=== PATIENT | male | born 1945 | race Caucasian/White ===

== ENCOUNTER 2020-04-26 03:29 | Emergency (ER) | payer MEDICARE, SELFPAY ==
[2020-04-26] VITALS (7 sets, daily range): BP systolic 143–156; BP diastolic 66–78; PULSE 79–86; RESP 20–30; TEMP 36.9; O2SAT 94–97; BMI 38.7
--- NOTE | 2020-04-26 03:32 | CT_ITS ---
EXAMINATION: CT HEAD WITHOUT CONTRAST CLINICAL INFORMATION: Right sided deficit. COMPARISON: None. TECHNIQUE: Contiguous helical images of the brain were obtained without IV contrast. Multiplanar reconstructions were performed. DLP: 781 mGy-cm. FINDINGS: There are no pathologic extra-axial fluid collections. The lateral, third, fourth ventricles are nondilated and concordant with the appearance of the sulci. There is no evidence for acute intraparenchymal hemorrhage or infarct. There is neither mass nor mass effect. There is no shift of midline structures. The paranasal sinuses and mastoid air cells are clear. There are no osseous lesions. CT/CT head for stroke IMPRESSION: No evidence for acute intracranial injury. Automated exposure control (Care Dose) Adjustment of the mA and/or kv according to patient size (this includes techniques or standardized protocols for targeted exams where dose is matched to indication / reason for exam; i.e. extremities or head). This critical result was discussed with Dr. Dye at 0342 hours on 04/26/2020. It was ascertained that the content and urgency of the report was understood at the time of direct communication.
--- NOTE | 2020-04-26 03:32 | PC.NURSE ---
EKG OBTAINED BY JOSE TOLENTINO AT BEDSIDE. ?STEMI, AWARE, SIGNED EKG. 2 IVs ESTABLISHED AT THIS TIME, PLAN TO MEDICATE WITH ASPIRIN. AWAITING LAB RESULTS. WILL CONTINUE TO MONITOR. PULSE 80s AT THIS TIME.
--- NOTE | 2020-04-26 03:32 | XR_ITS ---
EXAMINATION: CHEST 1 VIEW CLINICAL INFORMATION: Right-sided deficit. Concern for stroke. COMPARISON: None. TECHNIQUE: An AP view of the chest is provided. FINDINGS: The cardiac silhouette is not enlarged. The mediastinal and hilar contours are unremarkable. There are neither pleural effusions nor pneumothoraces. There is mild retrocardiac airspace disease. The osseous structures are unremarkable. XR/XR chest 1V IMPRESSION: Mild retrocardiac airspace disease.
--- NOTE | 2020-04-26 03:32 | ECG_ITS ---
Test Reason : SYNCOPAL EPISODE Blood Pressure : / mmHG Vent. Rate : 083 BPM Atrial Rate : 083 BPM P-R Int : 218 ms QRS Dur : 106 ms QT Int : 382 ms P-R-T Axes : 059 003 158 degrees QTc Int : 448 ms Sinus rhythm with 1st degree A-V block with Premature supraventricular complexes Left ventricular hypertrophy with repolarization abnormality Inferior infarct , possibly acute ACUTE ME / STEMI Consider right ventricular involvement in acute inferior infarct ST depression in Anterolateral leads Abnormal ECG No previous ECGs available Referred By: Gisella Dye Electronically Signed By:MIGEL SINGH MD
--- NOTE | 2020-04-26 03:34 | CT_ITS ---
EXAMINATION: CTA OF THE HEAD AND NECK CLINICAL INFORMATION: Right-sided deficits. Rule out stroke. COMPARISON: Head CT from 3:32 AM on 04/26/2020. TECHNIQUE: Test bolus sequences followed by intravenous administration 70 mL of Omnipaque 350. Helical imaging was performed in the axial plane from the mediastinum to the skull vertex. Delayed postcontrast imaging of the head was also performed. The data was processed at the sonography technologist's workstation for generation of MIP sequences. Three-dimensional volume rendered reformatted images were also generated at an offline 3-D workstation. Stenoses are assessed in accordance with NASCET criteria unless otherwise indicated. This CT examination was performed using dose optimization techniques as appropriate, variously including the following: *Automated exposure control *Adjustment of mA and/or kV according to patient size (this includes techniques or standardized protocols for targeted exams where dose is matched to indication/reason for exam; i.e. extremities or head) *Use of iterative reconstruction technique DLP: 1608 mGy-cm. FINDINGS: CTA neck: The imaged aortic arch and origins of the great vessels are normal. The vertebral arteries opacify normally and are of normal caliber. The right common carotid artery is normal in caliber to the level of the bifurcation. There are significant atherosclerotic wall calcifications and mural thrombus at the right carotid bifurcation with a severe stenosis extending from the distal common carotid artery into the origins of the right ECA and ICA. The remainder of the cervical right internal carotid artery is normal in caliber. The left common carotid artery is of normal caliber. There is a 50% stenosis at the origin of the left internal carotid artery due to atherosclerotic disease. The remainder of the cervical left ICA is normal. The thyroid gland is not well seen and is either atrophic or has been previously ablated: Clinically correlate. Multiple small calcifications are visible in the parotid glands, presumably postinflammatory in etiology. The imaged portions of the lungs are clear. CTA head: The intradural vertebral arteries and basilar artery are normal. There is a severe stenosis at the junction of the P1/P2 segments of the left DIRECTOR LIFE. The internal carotid arteries are of normal caliber. The GIANCARLO and MCA vascular complexes bilaterally are normal. The venous sinuses opacify normally. CT/CT angio head neck stroke IMPRESSION: Significant atherosclerotic disease at the right carotid bifurcation with a severe stenosis involving the distal common carotid artery and origins of the right ECA and right ICA. Approximate 50% stenosis at the origin of the left internal carotid artery. Severe focal stenosis in the left DIRECTOR LIFE intracranially.
--- NOTE | 2020-04-26 03:39 | ED.NEUROSD ---
HPI - Neuro Symptoms/Deficit General Chief Complaint: Stroke Stated Complaint: ?STROKE Time Seen by Provider: 04/26/20 03:31 Source: family ( ) and EMS Mode of arrival: EMS Limitations: no limitations History of Present Illness HPI Narrative: History is provided by /EMS: This is a 74-year-old male brought in by EMS @ 0330 for concerns of stroke. Apparently went to bed at approximately 11:00 p.m. and states that her was watching TV at the time that she went to bed and then approximately 3:00 a.m. she heard a thump in the bathroom and went to investigate and found her wedged in between the toilet and her vanity and he appeared to be diaphoretic. On asking him if he hurt himself he was able to respond appropriately and stated that he was uninsured. However, it was noted that he was unable to get up on his own at that time and the noted that it appeared he was listing to the right side but she does endorse that the patient was able to move all 4 extremities. She called EMS because she was unable to help her up from the floor and they were in agreement with her that they felt that he had some right-sided weakness. The states that the has been in his usual state health and is currently undergoing further evaluation workup for obstructive sleep apnea as well as progressive memory problems . Related Data Home Medications Medication Instructions Recorded Confirmed allopurinol 1 tab PO DAILY 04/26/20 04/26/20 atorvastatin 1 tab PO DAILY 04/26/20 04/26/20 blood sugar diagnostic [OneTouch 04/26/20 04/26/20 Verio test strips] dulaglutide [Trulicity] 0.5 ml SUBCUT QWEEK 04/26/20 04/26/20 empagliflozin [Jardiance] 1 tab PO QAM 04/26/20 04/26/20 insulin regular hum U-500 conc 100 unit SUBCUT TID 04/26/20 04/26/20 [Humulin R U-500 (Conc) Kwikpen] levothyroxine 1 tab PO DAILY 04/26/20 04/26/20 lisinopril 1 tab PO DAILY 04/26/20 04/26/20 omeprazole 1 cap PO DAILY 04/26/20 04/26/20 pen needle, diabetic [Unifine 04/26/20 04/26/20 Pentips Plus] Allergies Allergy/AdvReac Type Severity Reaction Status Date / Time No Known Allergies Allergy Verified 04/26/20 04:33 Review of Systems Review of Systems: Pertinent positives and negatives as stated in HPI and 10 point review of systems as per the patient were negative PMFSH Past Medical History Source: nursing notes reviewed Social History Social History Advance Directives: No Advance Directives Information Provided: No Physical Exam Vital Signs: Vital Signs: Last Vital Signs Temp 98.4 F 04/26/20 03:33 Pulse 82 04/26/20 03:33 Resp 20 04/26/20 03:33 BP 146/68 H 04/26/20 03:33 Pulse Ox 94 04/26/20 03:33 Body Mass Index 38.7 VITAL SIGNS: Reviewed, glucose-173 GENERAL: Well developed, well nourished, in no acute distress. HEAD: Normocephalic/atraumatic, EYES: PERRLA, EOMI intact without pain, no nystagmus/pallor/icterus noted EARS: Ext canals without abnormality, TMs non-bulging and non-erythematous NOSE: Nares patent bilateral OROPHARYNX: no oral lesions noted, posterior pharynx clear and non-erythematous without noted tonsillar enlargement/erythema/exudates NECK: Supple, no adenopathy LUNGS: Normal breath sounds. No adventitious sounds or accessory muscle use. SpO2<94> room air CARDIOVASCULAR: Regular rate and rhythm without noted murmurs, no JVD or lower extremity edema. ABDOMEN: Soft, non-tender, non-distended with bowel sounds. No rigidity. No guarding. No palpable masses or hernias noted MUSCULOSKELETAL: No tenderness, deformities, or effusions noted on gross inspection. EXTREMITIES: No cyanosis, clubbing or edema. SKIN: Inspection of the skin reveals no rashes, ulcerations, jaundice, pallor, or petechiae. NEUROLOGIC: Alert and oriented x 2. Strength and sensation to light touch were grossly intact x 4, no noted pronator drift, patient able to perform heel to hart, no facial asymmetry noted. POC INR: 1.0 Course Course Course Narrative: This is a 74-year-old male who on initial evaluation was noted to have questionable right-sided deficits and so we proceeded with the stroke protocol although patient was outside of the window of tPA with a last known well of 2300. Initial CT head was negative and on discussion with the who endorsed diaphoresis and mentioning that her fell off of the toilet thinking is now shifting towards possible vasovagal / syncopal episode and this was discussed in-depth with on-call Neurology who states that there is no indication at this time for tPA. Reevaluation(s) Reevaluation #1: Code STEMI called with noted ST elevations in the leads 3 and AVF with reciprocal ST depressions in the precordial leads Time: 04:21 Reevaluation #2: I discussed this case with Dr. Ruiz who states that currently the EKG looks like patient has establish Q-waves however if the troponin is found to be elevated we would transfer to [facility]. He is agreeable for the aspirin provided at this time but other interventions we will hold off on. Time: 04:30 Reevaluation #3: High sensitivity troponin is returned at 5519, this information was communicated with Dr. Ruiz and patient will be prepared for transfer to [facility] as an NSTEMI on a heparin drip. Time: 05:09 MDM - Neuro Symptoms/Deficit Lab Data Result diagrams: 04/26/20 04:09 04/26/20 04:09 Labs: Lab Results 04/26/20 04/26/20 04/26/20 Range/Units 03:40 04:09 04:09 WBC 17.3 H (4.8-10.8) X10*3/uL RBC 4.72 (4.60-5.80) X10*6/uL Hgb 13.6 L (14.0-18.0) g/dl Hct 42.8 (42-52) % MCV 90.7 (80-98) fL MCH 28.8 (27.0-33.0) pg MCHC 31.8 (31.0-36.0) g/dl RDW 13.8 (11.0-16.0) % Plt Count 209 (160-400) X10*3/uL MPV 10.9 (9.4-12.4) fL Immature Gran % (Auto) 0.3 (0.0-0.4) % Neut % (Auto) 62.1 (45-73) % Lymph % (Auto) 32.6 (20-40) % Mccreary % (Auto) 3.9 (2-11) % Eos % (Auto) 0.5 (0-4) % Baso % (Auto) 0.6 (0-2) % Lymph # (Auto) 5.6 H (1.2-4.9) X10*3/uL Mccreary # (Auto) 0.7 (0.1-1.2) X10*3/uL Eos # (Auto) 0.1 (0.0-0.4) X10*3/uL Baso # (Auto) 0.1 (0.0-0.2) X10*3/uL Abs Immat Gran (auto) 0.06 H (0.00-0.03) X10*3/uL Absolute Neuts (auto) 10.7 H (2.0-8.3) X10*3/uL Absolute Nucleated RBC 0.000 (0.0-0.012) X10*3/uL Nucleated RBC % (auto) 0.0 (0.0-0.2) /100WBC Smear Tech's Comments VERIFIED PT 12.2 (10.8-13.0) SEC Whole Blood PT 12.3 (11.1-13.5) sec INR 1.0 (0.9-1.1) Whole Blood INR 1.0 (0.9-1.1) APTT 31.9 (24.1-38.0) SEC Sodium (135-145) mmol/L Potassium (3.3-5.1) mmol/l Chloride (96-108) mmol/L Carbon Dioxide (22-29) mmol/L Anion Gap (12-20) BUN (9-16) mg/dL Creatinine (0.5-1.4) mg/dL Estim Creat Clear Calc Estimated GFR Random Glucose (60-115) mg/dL Calcium (8.4-10.2) mg/dL Troponin I High Sens (<3.5-35.0) ng/L Hold Red Top Coronavirus (PCR) (Negative) Influenza Type A (PCR) (Negative) Influenza Type B (PCR) (Negative) RSV RNA Qual (PCR) (Negative) 04/26/20 04/26/20 04/26/20 Range/Units 04:09 04:09 04:09 WBC (4.8-10.8) X10*3/uL RBC (4.60-5.80) X10*6/uL Hgb (14.0-18.0) g/dl Hct (42-52) % MCV (80-98) fL MCH (27.0-33.0) pg MCHC (31.0-36.0) g/dl RDW (11.0-16.0) % Plt Count (160-400) X10*3/uL MPV (9.4-12.4) fL Immature Gran % (Auto) (0.0-0.4) % Neut % (Auto) (45-73) % Lymph % (Auto) (20-40) % Mccreary % (Auto) (2-11) % Eos % (Auto) (0-4) % Baso % (Auto) (0-2) % Lymph # (Auto) (1.2-4.9) X10*3/uL Mccreary # (Auto) (0.1-1.2) X10*3/uL Eos # (Auto) (0.0-0.4) X10*3/uL Baso # (Auto) (0.0-0.2) X10*3/uL Abs Immat Gran (auto) (0.00-0.03) X10*3/uL Absolute Neuts (auto) (2.0-8.3) X10*3/uL Absolute Nucleated RBC (0.0-0.012) X10*3/uL Nucleated RBC % (auto) (0.0-0.2) /100WBC Smear Tech's Comments PT (10.8-13.0) SEC Whole Blood PT (11.1-13.5) sec INR (0.9-1.1) Whole Blood INR (0.9-1.1) APTT (24.1-38.0) SEC Sodium 133 L (135-145) mmol/L Potassium 4.7 (3.3-5.1) mmol/l Chloride 101 (96-108) mmol/L Carbon Dioxide 21 L (22-29) mmol/L Anion Gap 16 (12-20) BUN 30 H (9-16) mg/dL Creatinine 2.14 H (0.5-1.4) mg/dL Estim Creat Clear Calc 41.5 Estimated GFR 30 Random Glucose 169 H (60-115) mg/dL Calcium 10.1 (8.4-10.2) mg/dL Troponin I High Sens 5519.0 H (<3.5-35.0) ng/L Hold Red Top See Note Coronavirus (PCR) (Negative) Influenza Type A (PCR) (Negative) Influenza Type B (PCR) (Negative) RSV RNA Qual (PCR) (Negative) 04/26/20 Range/Units 04:42 WBC (4.8-10.8) X10*3/uL RBC (4.60-5.80) X10*6/uL Hgb (14.0-18.0) g/dl Hct (42-52) % MCV (80-98) fL MCH (27.0-33.0) pg MCHC (31.0-36.0) g/dl RDW (11.0-16.0) % Plt Count (160-400) X10*3/uL MPV (9.4-12.4) fL Immature Gran % (Auto) (0.0-0.4) % Neut % (Auto) (45-73) % Lymph % (Auto) (20-40) % Mccreary % (Auto) (2-11) % Eos % (Auto) (0-4) % Baso % (Auto) (0-2) % Lymph # (Auto) (1.2-4.9) X10*3/uL Mccreary # (Auto) (0.1-1.2) X10*3/uL Eos # (Auto) (0.0-0.4) X10*3/uL Baso # (Auto) (0.0-0.2) X10*3/uL Abs Immat Gran (auto) (0.00-0.03) X10*3/uL Absolute Neuts (auto) (2.0-8.3) X10*3/uL Absolute Nucleated RBC (0.0-0.012) X10*3/uL Nucleated RBC % (auto) (0.0-0.2) /100WBC Smear Tech's Comments PT (10.8-13.0) SEC Whole Blood PT (11.1-13.5) sec INR (0.9-1.1) Whole Blood INR (0.9-1.1) APTT (24.1-38.0) SEC Sodium (135-145) mmol/L Potassium (3.3-5.1) mmol/l Chloride (96-108) mmol/L Carbon Dioxide (22-29) mmol/L Anion Gap (12-20) BUN (9-16) mg/dL Creatinine (0.5-1.4) mg/dL Estim Creat Clear Calc Estimated GFR Random Glucose (60-115) mg/dL Calcium (8.4-10.2) mg/dL Troponin I High Sens (<3.5-35.0) ng/L Hold Red Top Coronavirus (PCR) NEGATIVE (Negative) Influenza Type A (PCR) NEGATIVE (Negative) Influenza Type B (PCR) NEGATIVE (Negative) RSV RNA Qual (PCR) NEGATIVE (Negative) NIH Stroke Scale Internal: Initial- Upon Arrival Time: 03:30 Level of Consciousness: Alert Level of Consciousness Questions: Answers both questions correctly Level of Consciousness Commands: Performs both tasks correctly Best Gaze: Normal Visual: No visual loss Facial Palsy: Normal Motor Arm (Right): No drift Motor Arm (Left): No drift Motor Leg (Right): No drift Motor Leg (Left): No drift Limb Ataxia: Present in two limbs Sensory: Normal Best Language: No aphasia Dysarthia: Normal Extinction and Inattention: No abnormality Score: 2 Discharge Plan Discharge Clinical Impression: Non-ST elevation NM (NSTEMI), Syncope and collapse Patient Disposition: Xfer [facility] Prescriptions: No [facility] atorvastatin 40 mg tablet 1 tab PO DAILY RF: 0 levothyroxine 137 mcg tablet 1 tab PO DAILY RF: 0 (DME) OneTouch Verio test strips Strip MISCELLANEOUS TID RF: 0 allopurinol 100 mg tablet 1 tab PO DAILY RF: 0 omeprazole 20 mg capsule,delayed release(DR/EC) 1 cap PO DAILY RF: 0 lisinopril 5 mg tablet 1 tab PO DAILY RF: 0 (DME) pen needle, diabetic [Unifine Pentips Plus] 31 gauge x 5/16 needle MISCELLANEOUS TID RF: 0 Jardiance 25 mg tablet 1 tab PO QAM RF: 0 Trulicity 1.5 mg/0.5 mL pen injector 0.5 ml subcut QWEEK RF: 0 Humulin R U-500 (Conc) Kwikpen 500 unit/mL (3 mL) insulin pen 100 unit subcut TID RF: 0
[2020-04-26] MEDS: iohexoL 350 MG/ML 100 ML INFUS..BTL 85 ML IV (03:51)
--- NOTE | 2020-04-26 03:51 | PC.NURSE ---
ATTEMPTED TO CONTACT PATIENT'S (FESTUS) AT NUMBER LISTED ON FILE. NO ANSWER, LEFT BRIEF VOICEMAIL TO CALL BACK THIS RN. PT CURRENTLY IN IMAGING.
[2020-04-26 03:53] LABS: Prothrombin Time Whole Bld POC 12.3 sec (11.1-13.5)
[2020-04-26 04:15] LABS: Basophils Absolute Auto 0.1 X10*3/uL (0.0-0.2); Basophils Percent Auto 0.6 % (0-2); Eosinophils Absolute Auto 0.1 X10*3/uL (0.0-0.4); Eosinophils Percent Auto 0.5 % (0-4); Hematocrit 42.8 % (42-52); Hemoglobin 13.6 g/dl (14.0-18.0); Imm Gran Abs Auto 0.06 X10*3/uL (0.00-0.03); Imm Gran Pct Auto 0.3 % (0.0-0.4); Lymphocytes Absolute Auto 5.6 X10*3/uL (1.2-4.9); Lymphocytes Percent Auto 32.6 % (20-40); Mean Corpuscular HGB Conc 31.8 g/dl (31.0-36.0); Mean Corpuscular Hemoglobin 28.8 pg (27.0-33.0); Mean Corpuscular Volume 90.7 fL (80-98); Mean Platelet Volume 10.9 fL (9.4-12.4); Monocytes Absolute Auto 0.7 X10*3/uL (0.1-1.2); Monocytes Percent Auto 3.9 % (2-11); Neutrophils Absolute Auto 10.7 X10*3/uL (2.0-8.3); Neutrophils Percent Auto 62.1 % (45-73); Platelet Count 209 X10*3/uL (160-400); Red Blood Count 4.72 X10*6/uL (4.60-5.80); Red Cell Distribution Width 13.8 % (11.0-16.0); SCAN SMEAR FLAG 1; White Blood Count 17.3 X10*3/uL (4.8-10.8)
[2020-04-26 04:25] LABS: MANUAL DIFF FLAG SCAN
[2020-04-26 04:26] LABS: Prothrombin Time 12.2 SEC (10.8-13.0)
[2020-04-26 04:27] LABS: Stroke Lab Use COMPLETE
[2020-04-26] MEDS: Aspirin 81 MG TAB.CHEW 324 MG PO (04:29)
[2020-04-26 04:36] LABS: Anion Gap 16 (12-20); Blood Urea Nitrogen 30 mg/dL (9-16); Calcium 10.1 mg/dL (8.4-10.2); Carbon Dioxide 21 mmol/L (22-29); Chloride 101 mmol/L (96-108); Creatinine Clr Calc Pharmacy 41.5; Estimated Glomerular Filt Rate 30; Glucose Random 169 mg/dL (60-115); Potassium 4.7 mmol/l (3.3-5.1); SLIDE REVIEW VERIFIED; Sodium 133 mmol/L (135-145)
--- NOTE | 2020-04-26 04:48 | PC.NURSE ---
DEVON CARL RN OBTAINED AND SENT COVID-19/FLU/RSV SWAB TO LAB. AWAITING RESULTS. AWARE. CONTINUING TO MONITOR AT THIS TIME.
[2020-04-26 04:53] LABS: Partial Thromboplastin Time 31.9 SEC (24.1-38.0)
--- NOTE | 2020-04-26 05:14 | PC.NURSE ---
0420: PATIENT PASSED SWALLOW EVAL. PATIENT HAD NO WET COUGH/ISSUES WITH CLEARANCE. MD AWARE. OKAY TO GIVE ASA AT THIS TIME. PATIENT HAS CONFUSED SPEECH AT BASELINE PER PRIMARY RN. FURTHER MORE, 2ND IV LINE ESTABLISHED IN RT THUMB DUE TO EMS LINE INFILTRATING. PRIMARY RN AWARE. 0429:MEDICATED WITH 1 L NS AND 324MG PO ASA PER VERBAL MD ORDER. SWALLOW
--- NOTE | 2020-04-26 05:22 | PC.NURSE ---
PREPARING FOR TRANSFER TO [facility]. STEMI, PER .
[2020-04-26 05:30] LABS: Influenza A PCR NEGATIVE (Negative); Influenza B PCR NEGATIVE (Negative); Resp Syncy Virus RNA Qual PCR NEGATIVE (Negative); SARS COV2 PCR INHOUSE NEGATIVE (Negative)
--- NOTE | 2020-04-26 05:30 | PC.NURSE ---
THIS RN SPOKE WITH PATIENT'S WITH (FESTUS) AND SON (SIRIA) IN WAITING ROOM. FESTUS REPORTS THAT A FEW DAYS AGO, PATIENT C/O VAGUE ANGINA THAT WENT AWAY. HE WAS BRUSHING IT OFF WHEN I ASKED HIM ABOUT IT AT [employer] THE OTHER NIGHT. HE JUST DIDN'T LOOK RIGHT. 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 PT DENIES PAIN AT THIS TIME. ALERT & ORIENTED TO SELF AND PLACE, BUT CONFUSED INTERMITTENTLY ABOUT TIME. BILATERAL IV ACCESS ESTABLISHED. MEDICATED WITH ASPIRIN 324MG BY JOSE OSORIO.
[2020-04-26] MEDS: Heparin Sodium,Porcine 5,000 UNIT/ML VIAL 5000 UNIT IVPUSH (05:46)
[2020-04-26] MEDS: Heparin Sodium,Porcine/1/2NS 25,000 UNIT/250 ML IV.SOLN 10 UNIT IVCONT (05:52)
--- NOTE | 2020-04-26 05:52 | PC.NURSE ---
HEPARIN DRIP INFUSION INITIATED AT 05:52AM ON 04/26/2020. INFUSING AT 10MLS/HOUR PER HEPARIN DRIP PROTOCOL. PATIENT WEIGHTS 126.2KG, PER BED SCALE. AWAITING TRANSFER TO [facility] FOR NSTEMI, UPDATED BY . REVIEWED HEPARIN PROTOCOL WITH DEVON AARON (RN) AND RANDA PAEZ (RN). AWARE.
--- NOTE | 2020-04-26 06:49 | PC.NURSE ---
RN to RN report given to JOSE Roberson at [facility] M5 Bed 9, contacted at [phone]. Transferred via [facility]. Heparin drip infusing during transport. Patient's and son updated.
== END 2020-04-26 06:55 | disposition short-term general hospital (02) ==
PROVIDERS: Emergency Provider Student in an Organized Health Care Education/Training Program; PCP Internal Medicine
DX: I21.4 Non-ST elevation (NSTEMI) myocardial infarction (principal); R29.702 NIHSS score 2; R55 Syncope and collapse; Z20.828 Contact with and (suspected) exposure to other viral communicable diseases; Z79.899 Other long term (current) drug therapy
CPT/HCPCS: 0241U; 36415; 70450; 70496; 70498; 71045; 80048; 84484; 85025; 85610; 85730; 93005; 96365; 96375; 99285; Q9967

== ENCOUNTER 2020-05-14 08:01 | Outpatient (REF) | payer MEDICARE, SELFPAY ==
[2020-05-14 08:36] LABS: Hematocrit 39.4 % (42-52); Hemoglobin 12.5 g/dl (14.0-18.0); Mean Corpuscular HGB Conc 31.7 g/dl (31.0-36.0); Mean Corpuscular Hemoglobin 28.1 pg (27.0-33.0); Mean Corpuscular Volume 88.5 fL (80-98); Mean Platelet Volume 11.7 fL (9.4-12.4); Platelet Count 166 X10*3/uL (160-400); Red Blood Count 4.45 X10*6/uL (4.60-5.80); Red Cell Distribution Width 14.2 % (11.0-16.0); White Blood Count 4.1 X10*3/uL (4.8-10.8)
[2020-05-14 09:11] LABS: Alanine Aminotransferase 53 U/L (0-40); Albumin Level 3.3 g/dL (3.5-5.0); Alkaline Phosphatase 99 U/L (39-117); Anion Gap 15 (12-20); Aspartate Amino Transferase 45 U/L (5-37); Bilirubin Total 0.6 mg/dL (0.0-1.0); Blood Urea Nitrogen 30 mg/dL (9-16); Calcium 9.4 mg/dL (8.4-10.2); Carbon Dioxide 22 mmol/L (22-29); Chloride 105 mmol/L (96-108); Estimated Glomerular Filt Rate 35; Glucose Random 163 mg/dL (60-115); Potassium 4.8 mmol/l (3.3-5.1); Sodium 137 mmol/L (135-145); Total Protein 5.7 g/dL (6.5-8.0)
== END 2020-05-14 08:02 | disposition home or self-care (01) ==
LOC: HO.MMNH1L 08:01
PROVIDERS: Visit Provider Family Medicine
DX: U07.1 COVID-19 (principal)
CPT/HCPCS: 36415; 80053; 85027

== ENCOUNTER 2020-05-24 | Outpatient (REF) | payer MEDICARE, SELFPAY ==
[2020-05-24 07:16] LABS: Hematocrit 36.6 % (42-52); Hemoglobin 11.6 g/dl (14.0-18.0); Mean Corpuscular HGB Conc 31.7 g/dl (31.0-36.0); Mean Corpuscular Hemoglobin 28.2 pg (27.0-33.0); Mean Corpuscular Volume 89.1 fL (80-98); Mean Platelet Volume 12.2 fL (9.4-12.4); Platelet Count 149 X10*3/uL (160-400); Red Blood Count 4.11 X10*6/uL (4.60-5.80); Red Cell Distribution Width 14.3 % (11.0-16.0)
[2020-05-24 07:24] LABS: Anion Gap 15 (12-20); Blood Urea Nitrogen 17 mg/dL (9-16); Calcium 9.6 mg/dL (8.4-10.2); Carbon Dioxide 23 mmol/L (22-29); Chloride 105 mmol/L (96-108); Estimated Glomerular Filt Rate 42; Glucose Random 285 mg/dL (60-115); Potassium 4.1 mmol/l (3.3-5.1); Sodium 139 mmol/L (135-145)
== END 2020-05-24 00:01 | disposition home or self-care (01) ==
LOC: HO.MMNH1L
PROVIDERS: Visit Provider Family Medicine
DX: U07.1 COVID-19 (principal)
CPT/HCPCS: 36415; 80048; 85027

== ENCOUNTER 2020-05-31 | Outpatient (REF) | payer MEDICARE, SELFPAY ==
[2020-05-31 06:55] LABS: Hematocrit 38.5 % (42-52); Hemoglobin 12.4 g/dl (14.0-18.0); Mean Corpuscular HGB Conc 32.2 g/dl (31.0-36.0); Platelet Count 180 X10*3/uL (160-400); Red Blood Count 4.28 X10*6/uL (4.60-5.80); Red Cell Distribution Width 14.5 % (11.0-16.0); White Blood Count 7.9 X10*3/uL (4.8-10.8)
[2020-05-31 07:20] LABS: Anion Gap 14 (12-20); Blood Urea Nitrogen 14 mg/dL (9-16); Calcium 10.4 mg/dL (8.4-10.2); Carbon Dioxide 26 mmol/L (22-29); Chloride 102 mmol/L (96-108); Estimated Glomerular Filt Rate 47; Glucose Random 93 mg/dL (60-115); Potassium 4.2 mmol/l (3.3-5.1); Sodium 138 mmol/L (135-145)
== END 2020-05-31 00:01 ==
LOC: HO.MMNH1L
PROVIDERS: Visit Provider Family Medicine
DX: U07.1 COVID-19 (principal)
CPT/HCPCS: 36415; 80048; 85027

== ENCOUNTER 2022-12-26 12:37 | Outpatient (RCR) | payer MEDICARE, SELFPAY | END 2023-06-18 17:00 | disposition home or self-care (01) | LOC: HO.WCC 12:37 | PROVIDERS: PCP Internal Medicine; Visit Provider Physician Assistant | DX: E11.622 Type 2 diabetes mellitus with other skin ulcer (principal); L97.822 Non-pressure chronic ulcer of other part of left lower leg with fat layer exposed; L97.812 Non-pressure chronic ulcer of other part of right lower leg with fat layer exposed; I87.333 Chronic venous hypertension (idiopathic) with ulcer and inflammation of bilateral lower extremity; I87.2 Venous insufficiency (chronic) (peripheral); I10 Essential (primary) hypertension; F03.90 Unspecified dementia, unspecified severity, without behavioral disturbance, psychotic disturbance, mood disturbance, and anxiety; Z79.4 Long term (current) use of insulin; Z79.82 Long term (current) use of aspirin; Z79.2 Long term (current) use of antibiotics; Z79.899 Other long term (current) drug therapy; Z86.16 Personal history of COVID-19; Z87.891 Personal history of nicotine dependence | CPT/HCPCS: 11042; 11045; 29580; 97597; 97598; 99214 ==